=== PATIENT | female | born 1995 | race Caucasian/White ===

== ENCOUNTER → 2018-12-22 | Outpatient (CLI) | payer OTHER | LOC: OD 10:54 | PROVIDERS: ATTEND Otolaryngology | DX: J30.9 Allergic rhinitis, unspecified (principal) | CPT/HCPCS: 36415; 82785; 86003 ==

== ENCOUNTER → 2018-12-30 | Outpatient (CLI) | payer OTHER ==
--- NOTE | 2018-12-30 19:17 | RADIOLOGY REPORT (SQ) ---
EXAM DESCRIPTION: CT SINUSES FOR ENT COMPLETED DATE/TIME: 12/30/2018 3:19 pm REASON FOR STUDY: J01.91 ACUTE RECURRENT SINUSITIS, UNSPECIFIED J01.91 ACUTE RECURRENT SINUSITIS, U NSPECIFIED COMPARISON: None. TECHNIQUE: Noncontrast scanning through the paranasal sinuses using bone algorithm. Reconstructed MPR images reviewed. All images stored on PACS. All CT scanners at this facility use dose modulation, iterative reconstruction, and/or weight based d osing when appropriate to reduce radiation dose to as low as reasonably achievable (ALARA). [facility]: Dose Right [facility]: CareDose [facility]: Dose Right [facility]: Teradose 4D [facility]: [facility] RADIATION DOSE: CT Rad equipment meets quality standard of care and radiation dose reduction techniq ues were employed. CTDIvol: 46.5 mGy. DLP: 1154 mGy-cm.mGy. LIMITATIONS: None. FINDINGS: Right sinuses and drainage pathways: Post-surgical changes: None. Frontal sinus: Not developed Frontoethmoidal Recess: Opacified Anterior Ethmoid Sinuses: Completely opacified Posterior Ethmoid Sinuses: Completely opacified Sphenoid Sinus: Hypoplastic, completely opacified Sphenoethmoidal Recess: Opacified Maxillary Sinus: Completely opacified Ostiomeatal Complex: Occluded by mucous membrane thickening. The ostiomeatal complex is de-ossified and a polyp may be present Left Sinuses and Drainage Pathways: Post-Surgical Changes: None. Frontal Sinus: Not developed Frontoethmoidal Recess: Opacified Anterior Ethmoid Sinuses: Completely opacified Posterior Ethmoid Sinuses: Near completely opacified Sphenoid Sinus: Hypoplastic, opacified Sphenoethmoidal Recess: Completely opacified Maxillary Sinus: Completely opacified Ostiomeatal Complex: Occluded by mucous membrane thickening. The ostiomeatal complex is de-ossified, and a polyp may present. Right Olfactory Fossa: No polyps. Left Olfactory Fossa: No polyps. Middle Turbinate Yeimi Bullosa: No. Paradoxical Middle Turbinate: No. Atelectatic Uncinated Process: No. Frontal Merced Cell Type I: No. Frontal Merced Cell Type II: No. Interfrontal Sinus Septal Cell: None. Supra-Orbital Ethmoid: None. Frontal Bullar Cell: None. Suprabullar Bullar Cell: None. Sphenoethmoidal ([place]) Cell: None. Pneumatization of the Anterior Clinoid Processes: No Hypoplastic Maxillary Sinus: None. Osteoneogenesis: None. Bone Dehiscence:None. Nasal Cavity: Possible polyps along the right and left ostiomeatal complexes Nasal Septum: Mild rightward nasal septal deviation, small right nasal septal spur Anatomic Variants: Right Vidian Canal: Normal. Left Vidian Canal: Normal. IMPRESSION: Riddle sinusitis TECHNICAL DOCUMENTATION: JOB ID: [id number] Quality ID # [id number]: Final reports with documentation of one or more dose reduction techniques (e.g., Au tomated exposure control, adjustment of the mA and/or kV according to patient size, use of iterative reconstruction technique) 2010 [employer]- All Rights Reserved Reading location - IP/workstation name: [email or web address]
== END ==
LOC: RAD 14:33
PROVIDERS: ATTEND Otolaryngology
DX: J01.91 Acute recurrent sinusitis, unspecified (principal); J34.2 Deviated nasal septum; J34.89 Other specified disorders of nose and nasal sinuses
CPT/HCPCS: 70486